=== PATIENT | female | born 2005 | race Hispanic/Latino ===

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

== ENCOUNTER 2024-01-15 11:57 | Emergency (ER) | payer SELFPAY ==
[~2024-01-15] VITALS: Ht 170.2 cm; Wt 155.6 kg
[2024-01-15 12:06] VITALS: TEMP 98.6
[2024-01-15 12:29] VITALS: BP 147/64; PULSE 87; RESP 17; O2SAT 99
--- NOTE | 2024-01-15 12:36 | ERN ---
General Chief Complaint: Ankle Problem Stated Complaint: RIGHT ANKLE PAIN Time Seen by MD: 11:57 Time Seen by Midlevel: 11:57 Source: patient History of Present Illness Initial Comments Patient is a morbidly obese 18-year-old female presenting with right ankle pain that started on Friday x6 days ago. She is unsure if she injured herself. She has been using rice therapy at home with little to no relief. She does report a previous right ankle surgery when she was a young child but is unable to tell me what type of procedure they performed. Patient is ambulatory with a limp. Denies any other concerns at this time Allergies: Coded Allergies: No Known Allergies (Unverified Allergy, Unknown, 11/16/18) Home Meds Active Scripts Guaifenesin (Guaifenesin) 400 Mg Tablet, 400 MG PO Q4HPRN PRN for COUGH for 5 Days, #30 TAB Prov:MATTHEW TOLBERT V TUBE MAN 04/27/22 Benzonatate (Benzonatate) 200 Mg Capsule, 200 MG PO TID PRN for COUGH for 14 Days, #42 CAP Prov:MATTHEW TOLBERT V TUBE MAN 04/27/22 Azithromycin (Azithromycin) 250 Mg Tablet, 250 MG PO DAILY for 5 Days, #6 TAB Take 2 now then 1 daily until complete Prov:MATTHEW TOLBERT V TUBE MAN 04/27/22 Past Medical History Past Medical History: Asthma Medical History Other: Morbidly obese Past Surgical History: Tonsillectomy, Other Surgical History Other: RT ANKLE Social History Social History: Lives with family ROS Dictation CONSTITUTIONAL: Negative except for HPI HEAD/FACE: Negative except for HPI EENT: Negative except for HPI RESPIRATORY: Negative except for HPI GASTROINTESTINAL/ABDOMINAL: Negative except for HPI GENITOURINARY: Negative except for HPI MUSCULOSKELETAL: Negative except for HPI INTEGUMENTARY: Negative except for HPI NEUROLOGICAL/PSYCH: Negative except for HPI HEMATOLOGIC/LYMPHATIC: Negative except for HPI All Systems Negative, Except as noted above. 13 point review of systems assessed and all negative except for above. Physical Exam Physical Exam Dictation Vital Signs reviewed General Appearance: Alert, oriented x 3, no acute distress, well developed, nourished. Head and Face: non-traumatic. Eyes: PERRL, pink conjunctivas, eyelid no trauma, anterior chamber with arcus senilis. Ears: Pinnas intact and no signs of trauma or erythema ear canals clear and no discharge TM no erythema Nose: No discharge, no bleeding. Oropharynx: Mouth normal, tongue pink, pharynx clear,no erythema, tonsils no exudates, no abscesses noted, mucous membrane moist Neck: Supple, non-tender, no thyromegaly, no masses, no JVD, no bruits Breast:Deferred Chest:No tenderness, no crepitus, no paradoxical movement, no retractions Lungs:Clear, well-ventilated, symmetric, no rales, no wheezing, no rhonchi, no stridor, good breath sounds bilaterally Heart: Regular rate, regular rhythm, no murmur, no gallops Vascular: no peripheral edema, Abdomen: Soft, positive bowel sounds, nondistended, no guarding, nontender, no rebound, no masses no hepatomegaly, no splenomegaly, no Cabrera's sign, no hernias. Rectal: Deferred Genital: Deferred Neurological: Normal speech, motor function intact, sensory function intact Musculoskeletal: Neck nontender, full range of motion, back nontender, full range of motion, Extremities: nontender, full range of motion Skin: Color pink, dry, no turgor, no rash, no lacerations, no abrasions, no contusions. Lymphatic: Deferred MDM MDM: Differential diagnosis: Fracture, contusion, dislocation There are no social concerns with this patient. Prescription drug management Prescriptions will include: None Medical management and examination interpretation discussions were had by me with other qualified healthcare professionals as indicated for the patient's care. ED Course Orders Procedure Category Date Status Time Ankle Comp 3vws Rt RAD 01/15/24 Resulted 12:18 Vital Signs Date Time Temp Pulse Resp B/P (MAP) Pulse Ox O2 Delivery O2 Flow Rate FiO2 01/15/24 12:29 87 17 147/64 99 Room Air* 0 21 01/15/24 12:06 98.6 85 18 178/101 98 [place] [id number] [address] IMAGING REPORT Signed PATIENT: DORON TRINIDAD MR#: [id number] : 2005 SEX: F AGE: 18 LOCATION: [facility] ORDER 1220 STATUS: REG ER REPORT#: [id number] SERVICE 1218 REASON: pain/swelling ORDERING PHYSICIAN: SERGIO COPE PROCEDURE: OEO2QCM - ANKLE COMP 3VWS RT ANKLE COMP 3VWS RT HISTORY: Pain COMPARISON: None TECHNIQUE: 3 images of right ankle were obtained. FINDINGS: There is no acute displaced fracture or dislocation. IMPRESSION: 1. Findings as described above. DICTATED BY: PARVEEN AMOS MD DATE: 01/15/24 125 ELECTRONICALLY SIGNED BY: PARVEEN AMOS MD DATE: 01/15/24 125 DX & DISP Disposition: Discharge Departure Impression: Primary Impression: Right ankle sprain Condition: Stable Additional Instructions: Your x-ray of the right ankle does not show any acute fracture or dislocation. Please follow up with your doctor in 2-3 days for repeat evaluation. Return to the ER for any new or worsening symptoms. Referrals: NAPOLEON SALES (PCP) ROSEMARY ALVAREZ MD Time of Disposition: 12:55 I have reviewed the case, and I agree with, Diagnosis and Plan I performed the substantive portion of the visit. I have reviewed and personally made and approve the management plan that is documented in the note by myself or the HERRERA. I acknowledge for responsibility for the patient's management plan. SERGIO COPE Jan 15, 2024 12:36
--- NOTE | 2024-01-15 12:53 | HMCIMG ---
ANKLE COMP 3VWS RT HISTORY: Pain COMPARISON: None TECHNIQUE: 3 images of right ankle were obtained. FINDINGS: There is no acute displaced fracture or dislocation. IMPRESSION: 1. Findings as described above.
== END 2024-01-15 13:16 | disposition home or self-care (01) ==
LOC: EDH 11:57
DX: S93.491A Sprain of other ligament of right ankle, initial encounter (principal); E66.01 Morbid (severe) obesity due to excess calories; J45.909 Unspecified asthma, uncomplicated; Z90.89 Acquired absence of other organs; X58.XXXA Exposure to other specified factors, initial encounter; Y93.89 Activity, other specified; Y92.89 Other specified places as the place of occurrence of the external cause; Y99.8 Other external cause status
CPT/HCPCS: 29515; 73610; 99283